=== PATIENT | male | born 1995 ===

== ENCOUNTER 2020-02-21 12:43 | Emergency (ER) | payer OTHER ==
[~2020-02-21] VITALS: Ht 165.1 cm; Wt 97.7 kg
[2020-02-21 14:27] VITALS: BP 147/102
== END 2020-02-21 14:28 | disposition home or self-care (01) ==
LOC: ER 12:43
DX: S46.911A Strain of unspecified muscle, fascia and tendon at shoulder and upper arm level, right arm, initial encounter (principal); X50.0XXA Overexertion from strenuous movement or load, initial encounter; Y93.89 Activity, other specified; Y92.89 Other specified places as the place of occurrence of the external cause; Y99.8 Other external cause status
CPT/HCPCS: 99282